=== PATIENT | male | born 1975 | race Caucasian/White ===

== ENCOUNTER 2022-01-01 10:42 | Emergency (ER) | payer BC ==
[2022-01-01] MEDS ORDERED: Amoxicillin/Clavulanate K 875-125 MG Tab PO ONE (11:51)
[2022-01-01] MEDS ORDERED: Acetaminophen/HYDROcodone 325-5 MG Tab PO ONE (11:52)
[2022-01-01] MEDS ORDERED: Bacitracin Oint 1 GM U/D Packet TOP ONE (11:52)
== END 2022-01-01 13:22 | disposition home or self-care (01) ==
LOC: MW.ED 10:42
DX: S01.551A Open bite of lip, initial encounter (principal); S30.21XA Contusion of penis, initial encounter; Z79.899 Other long term (current) drug therapy; Y04.1XXA Assault by human bite, initial encounter
CPT/HCPCS: 81001; 99284; A9270